=== PATIENT | female | born 1990 | race American Indian/Alaskan Native ===

== ENCOUNTER 2021-04-06 01:25 | Inpatient (IN) | payer BC ==
[2021-04-06] MEDS ORDERED: Butorphanol 1 MG/ML SDV IVPUSH PRN ×2 (02:07→04:09)
[2021-04-06] MEDS ORDERED: hydrOXYzine Pamoate 25 MG Cap PO PRN (02:08)
[2021-04-06] MEDS ORDERED: Lactated Ringers 1,000 ML IV SCH (02:15)
[2021-04-06] MEDS ORDERED: Carboprost Tromethamine 250 MCG/1 ML Amp IM PRN (04:09)
[2021-04-06] MEDS ORDERED: Misoprostol 200 MCG Tab PO PRN (04:09)
[2021-04-06] MEDS ORDERED: Nalbuphine 10 MG/1 ML Vial IVPUSH PRN (04:09)
[2021-04-06] MEDS ORDERED: Ondansetron 4 MG/2 ML SDV IVPUSH PRN (04:09)
[2021-04-06] MEDS ORDERED: Tranexamic Acid 1,000 MG in Sodium Chloride 0.9% 100 ML IV PRN (04:09)
[2021-04-06] MEDS ORDERED: Water For Irrigation,Sterile 1,000 ML Container IRR PRN (04:09)
[2021-04-06] MEDS ORDERED: Lidocaine 1% 50 ML MDV INJECT PRN (04:09)
[2021-04-06] MEDS ORDERED: Methylergonovine 0.2 MG/1 ML Amp IM PRN (04:09)
[2021-04-06] MEDS ORDERED: Oxytocin/0.9 % Sodium Chloride 30 UNIT/500 ML BAG IV SCH (04:15)
[2021-04-06] MEDS: Lactated Ringers 1,000 ML IV SCH ×4 (05:33→16:47)
[2021-04-06] MEDS ORDERED: hydrOXYzine Pamoate 25 MG Cap ONE (06:34)
[2021-04-06] MEDS ORDERED: Ropivacaine HCl/PF 200 ML ONE ×2 (07:36→20:13)
[2021-04-06] MEDS ORDERED: Bupivacaine 0.25% 10 ML SDV ONE (07:36)
--- NOTE | 2021-04-06 08:00 | PCM.PREANE ---
Preanesthetic Assessment - Anesthesia/Transfusion/Family Hx Anesthesia History: Prior Anesthesia Without Reaction Family History of Anesthesia Reaction: No Transfusion History: No Prior Transfusion(s) - Physical Assessment NPO Status Date: 04/06/21 NPO Status Time: 00:00 Height: 5 ft 2 in Weight: 192 lb ASA Class: 2 Airway Class: Mallampati = 3 - Lab Values: Laboratory Last Values WBC 11.51 K/uL (4.0-11.0) H 04/06/21 02:45 RBC 3.81 M/uL (4.30-5.90) L 04/06/21 02:45 Hgb 11.8 g/dL (12.0-16.0) L 04/06/21 02:45 Hct 34.1 % (36.0-46.0) L 04/06/21 02:45 MCV 89.5 fL (80.0-98.0) 04/06/21 02:45 MCH 31.0 pg (27.0-32.0) 04/06/21 02:45 MCHC 34.6 g/dL (31.0-37.0) 04/06/21 02:45 RDW Std Deviation 44.2 fl (28.0-62.0) 04/06/21 02:45 RDW Coeff of Rosalinda 14 % (11.0-15.0) 04/06/21 02:45 Plt Count 244 K/uL (150-400) 04/06/21 02:45 MPV 9.70 fL (7.40-12.00) 04/06/21 02:45 Nucleated RBC % 0.0 /100WBC 04/06/21 02:45 Nucleated RBCs # 0 K/uL 04/06/21 02:45 Blood Type A POSITIVE 04/06/21 02:45 Antibody Screen NEGATIVE 04/06/21 02:45 - Allergies Allergies/Adverse Reactions: Allergies Allergy/AdvReac Type Severity Reaction Status Date / Time No Known Allergies Allergy Verified 04/06/21 02:03 - Blood Blood Available: Yes Product(s) Available: PRBC - Anesthesia Plan Pre-Op Medication Ordered: None - Acknowledgements Anesthesia Type Planned: Epidural Pt an Appropriate Candidate for the Planned Anesthesia: Yes Alternatives and Risks of Anesthesia Discussed w Pt/Guardian: Yes Pt/Guardian Understands and Agrees with Anesthesia Plan: Yes PreAnesthesia Questionnaire - Past Health History Medical/Surgical History: Denies Medical/Surgical History [employer]ER History: Reports: - Infectious Disease History Infectious Disease History: Reports: Chicken Pox, Influenza - SUBSTANCE USE Tobacco Use Status *Q: Never Tobacco User Second Hand Smoke Exposure: No - HOME MEDS Home Medications: Home Meds Cholecalciferol (Vitamin D3) [Vitamin D] 1 tab PO DAILY 04/06/21 [History] Pnv No.95/Ferrous Fum/Folic AC [ Vitamin Tablet] 1 tab PO DAILY 04/06/21 [History] - CURRENT (IN HOUSE) MEDS Current Meds: Current Medications Butorphanol Tartrate (Butorphanol 1 Mg/Ml Sdv) 1 mg IVPUSH Q1H PRN PRN Reason: Pain Last Admin: 04/06/21 02:45 Dose: 1 mg Documented by: Butorphanol Tartrate (Butorphanol 1 Mg/Ml Sdv) 1 mg IVPUSH Q1H PRN PRN Reason: Pain (severe 7-10) Last Admin: 04/06/21 05:17 Dose: 1 mg Documented by: Carboprost Tromethamine (Carboprost Tromethamine 250 Mcg/1 Ml Amp) 250 mcg IM ASDIRECTED PRN PRN Reason: Post Hemorrhage Hydroxyzine Pamoate (Hydroxyzine Pamoate 25 Mg Cap) 50 mg PO ONETIME PRN PRN Reason: Sleep Last Admin: 04/06/21 06:37 Dose: 50 mg Documented by: Lactated Ringer's (Ringers, Lactated) 1,000 mls @ 150 mls/hr IV ASDIRECTED FRED Last Admin: 04/06/21 05:33 Dose: 150 mls/hr Documented by: Oxytocin/Sodium Chloride (Oxytocin 30 Unit/500 Ml-Ns) 30 unit in 500 mls @ 500 mls/hr IV TITRATE [facility]ED Tranexamic Acid 1,000 mg/ (Sodium Chloride) 110 mls @ 660 mls/hr IV ONETIME PRN PRN Reason: Bleeding Lidocaine HCl (Lidocaine 1% 50 Ml Mdv) 50 ml INJECT ONETIME PRN PRN Reason: Laceration repair Methylergonovine Maleate (Methylergonovine 0.2 Mg/1 Ml Amp) 0.2 mg IM ASDIRECTED PRN PRN Reason: Post Hemorrhage Misoprostol (Misoprostol 200 Mcg Tab) 200 mcg PO ONETIME PRN PRN Reason: Post Hemorrhage Nalbuphine HCl (Nalbuphine 10 Mg/1 Ml Vial) 10 mg IVPUSH Q1H PRN PRN Reason: Pain (severe 7-10) Ondansetron HCl (Ondansetron 4 Mg/2 Ml Sdv) 4 mg IVPUSH Q6H PRN PRN Reason: Nausea/Vomiting Sterile Water (Water For Irrigation,Sterile 1,000 Ml Container) 1,000 ml IRR ASDIRECTED PRN PRN Reason: delivery Discontinued Medications Bupivacaine HCl (Bupivacaine 0.25% 10 Ml Sdv) Confirm Administered Dose 10 ml .ROUTE .STK-MED ONE Stop: 04/06/21 07:37 Hydroxyzine Pamoate (Hydroxyzine Pamoate 25 Mg Cap) Confirm Administered Dose 50 mg .ROUTE .STK-MED ONE Stop: 04/06/21 06:35 Lactated Ringer's (Ringers, Lactated) 1,000 mls @ 500 mls/hr IV BOLUS FRED Last Admin: 04/06/21 02:30 Dose: 500 mls/hr Documented by: Ropivacaine (Naropin 0.2%) Confirm Administered Dose 200 mls @ as directed .ROUTE .STK-MED ONE Stop: 04/06/21 07:37
--- NOTE | 2021-04-06 08:02 | PCM.PREANE ---
Preanesthetic Assessment - Anesthesia/Transfusion/Family Hx Anesthesia History: Prior Anesthesia Without Reaction Family History of Anesthesia Reaction: No Transfusion History: No Prior Transfusion(s) - Physical Assessment NPO Status Date: 04/06/21 NPO Status Time: 00:00 Height: 5 ft 2 in Weight: 192 lb - Lab Values: Laboratory Last Values WBC 11.51 K/uL (4.0-11.0) H 04/06/21 02:45 RBC 3.81 M/uL (4.30-5.90) L 04/06/21 02:45 Hgb 11.8 g/dL (12.0-16.0) L 04/06/21 02:45 Hct 34.1 % (36.0-46.0) L 04/06/21 02:45 MCV 89.5 fL (80.0-98.0) 04/06/21 02:45 MCH 31.0 pg (27.0-32.0) 04/06/21 02:45 MCHC 34.6 g/dL (31.0-37.0) 04/06/21 02:45 RDW Std Deviation 44.2 fl (28.0-62.0) 04/06/21 02:45 RDW Coeff of Rosalinda 14 % (11.0-15.0) 04/06/21 02:45 Plt Count 244 K/uL (150-400) 04/06/21 02:45 MPV 9.70 fL (7.40-12.00) 04/06/21 02:45 Nucleated RBC % 0.0 /100WBC 04/06/21 02:45 Nucleated RBCs # 0 K/uL 04/06/21 02:45 Blood Type A POSITIVE 04/06/21 02:45 Antibody Screen NEGATIVE 04/06/21 02:45 - Allergies Allergies/Adverse Reactions: Allergies Allergy/AdvReac Type Severity Reaction Status Date / Time No Known Allergies Allergy Verified 04/06/21 02:03 - Blood Blood Available: Yes Product(s) Available: PRBC PreAnesthesia Questionnaire - Past Health History Medical/Surgical History: Denies 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: - Infectious Disease History Infectious Disease History: Reports: Chicken Pox, Influenza - SUBSTANCE USE Tobacco Use Status *Q: Never Tobacco User Second Hand Smoke Exposure: No - HOME MEDS Home Medications: Home Meds Cholecalciferol (Vitamin D3) [Vitamin D] 1 tab PO DAILY 04/06/21 [History] Pnv No.95/Ferrous Fum/Folic AC [ Vitamin Tablet] 1 tab PO DAILY 04/06/21 [History] - CURRENT (IN HOUSE) MEDS Current Meds: Current Medications Butorphanol Tartrate (Butorphanol 1 Mg/Ml Sdv) 1 mg IVPUSH Q1H PRN PRN Reason: Pain Last Admin: 04/06/21 02:45 Dose: 1 mg Documented by: Butorphanol Tartrate (Butorphanol 1 Mg/Ml Sdv) 1 mg IVPUSH Q1H PRN PRN Reason: Pain (severe 7-10) Last Admin: 04/06/21 05:17 Dose: 1 mg Documented by: Carboprost Tromethamine (Carboprost Tromethamine 250 Mcg/1 Ml Amp) 250 mcg IM ASDIRECTED PRN PRN Reason: Post Hemorrhage Hydroxyzine Pamoate (Hydroxyzine Pamoate 25 Mg Cap) 50 mg PO ONETIME PRN PRN Reason: Sleep Last Admin: 04/06/21 06:37 Dose: 50 mg Documented by: Lactated Ringer's (Ringers, Lactated) 1,000 mls @ 150 mls/hr IV ASDIRECTED FRED Last Admin: 04/06/21 05:33 Dose: 150 mls/hr Documented by: Oxytocin/Sodium Chloride (Oxytocin 30 Unit/500 Ml-Ns) 30 unit in 500 mls @ 500 mls/hr IV TITRATE [facility] Tranexamic Acid 1,000 mg/ (Sodium Chloride) 110 mls @ 660 mls/hr IV ONETIME PRN PRN Reason: Bleeding Lidocaine HCl (Lidocaine 1% 50 Ml Mdv) 50 ml INJECT ONETIME PRN PRN Reason: Laceration repair Methylergonovine Maleate (Methylergonovine 0.2 Mg/1 Ml Amp) 0.2 mg IM ASDIRECTED PRN PRN Reason: Post Hemorrhage Misoprostol (Misoprostol 200 Mcg Tab) 200 mcg PO ONETIME PRN PRN Reason: Post Hemorrhage Nalbuphine HCl (Nalbuphine 10 Mg/1 Ml Vial) 10 mg IVPUSH Q1H PRN PRN Reason: Pain (severe 7-10) Ondansetron HCl (Ondansetron 4 Mg/2 Ml Sdv) 4 mg IVPUSH Q6H PRN PRN Reason: Nausea/Vomiting Sterile Water (Water For Irrigation,Sterile 1,000 Ml Container) 1,000 ml IRR ASDIRECTED PRN PRN Reason: delivery Discontinued Medications Bupivacaine HCl (Bupivacaine 0.25% 10 Ml Sdv) Confirm Administered Dose 10 ml .ROUTE .[employer] ONE Stop: 04/06/21 07:37 Hydroxyzine Pamoate (Hydroxyzine Pamoate 25 Mg Cap) Confirm Administered Dose 50 mg .ROUTE .STnetTALK-MED ONE Stop: 04/06/21 06:35 Lactated Ringer's (Ringers, Lactated) 1,000 mls @ 500 mls/hr IV BOLUS FRED Last Admin: 04/06/21 02:30 Dose: 500 mls/hr Documented by: Ropivacaine (Naropin 0.2%) Confirm Administered Dose 200 mls @ as directed .ROUTE .[facility] ONE Stop: 04/06/21 07:37 - Pre-Procedure Checklist Attending Provider Aware: Yes Chart Reviewed: Yes Consent Signed: Yes Labs Reviewed: Yes VS/FHR Reviewed: Yes Patient Identification Confirmation Method: Reports: Verbal Patient Pt an Appropriate Candidate for the Planned Anesthesia: Yes Alternatives and Risks of Anesthesia Discussed w Pt/Guardian: Yes - Procedure Procedure Start Date: 04/06/21 Procedure Start Time: 07:[address]: Reports: Blood Pressure, Heart Rate, SPO2 Functional IV: Yes Safety Measures: Reports: Patient Identified, Procedure Verified, Site Verified, Procedure Time Out Patient Position: Reports: Sitting Prep: Reports: Betadine x3, Sterile Drape Local Anesthetic: Reports: Intradermal Wheal w Lidocaine 1% Regional Placement Level: Reports: L3-4 Needle: Reports: 17 g Touhy Approach: Reports: Midline Technique: Reports: DELPHINE Plastic Syringe Parasthesia: Reports: None Fluid Obtained: Reports: None Test Dose Time: 07:47 Test Dose Medication: Reports: Lidocaine 1.5% w Epinephrine 1:200,000 Test Dose Response: Reports: Negative Loading Dose Time: 07:46 Loading Dose Medication: bupivicaine 0.25% 10cc Loading Dose Patient Position: sitting Continuous Infusion Start Time: 07:50 Continuous Infusion Medication: ropivicaine 0.2% Continuous Infusion Rate: 16 Continuous Infusion PCS Bolus Option: 4 Continuous Infusion Lockout Dose (cc/hr): 32 Patient Position Post Placement: Reports: Supline/CORNELIUS VS and FHR Monitored in Unit Post Placement: Yes Procedure End Date: 04/06/21 Procedure End Time: 08:40
[2021-04-06] MEDS ORDERED: Acetaminophen 500 MG Tab PO ONE (19:40)
--- NOTE | 2021-04-07 03:22 | PCM.DEL ---
L & D Note - General Info Date of Service: 04/07/21 - Delivery Note Labor: Spontaneous Delivery Outcome: Livebirth Delivery Method: Spontaneous Vaginal Delivery-Single Delivery Mode: Vacuum Extraction Presentation: Left Occiput Anterior (DELORIS) Nuchal Cord: None Anesthesia Type: Epidural Episiotomy Type: None Laceration: Labial Suture type: Vicryl Suture size: 2-0 Placenta: Intact Cord: 3 Vessels Estimated Blood Loss: 300 Resuscitation Needed: No Score 1 min: 7 Score 5 min: 7 Second Stage Interventions: Reports: Pushing Effectively Delivery Comments (Free Text/Narrative):: Patient consent for vacuum assisted vaginal delivery She pushed for 2hrs with head at +2 station. Patient informed of the risk of vacuum cephalhematoma , maternal injury , subgleal hematoma. if failed vacuum , she will need a Kiwi vacuum applied at flexion point , 1 pop off noted , after which head was successfully delivered Live female delivered at 213am , 7/7 weight 3890g Vacuum Extractor Progress Note - Alternative Labor Strategies Considered Strategies Considered:: Reports: Position Changes Used to Facilitate Rotation & Descent, Empty Bladder Indications Considered:: Reports: Yes Indications:: Reports: Prolonged 2nd Stage Time Out:: Reports: Yes - Patient Prepared Patient Prepared:: Reports: Yes Informed Consent:: Reports: Verbal Risks: Reports: Yes Risks Include:: Reports: Laceration, Shoulder Dystocia, Maternal Injury, Other Anesthesia/Analgesia Adequate:: Reports: Yes - Probability of Success High Probability of Success:: Reports: Yes Weight Estimated:: Reports: LGA Patient Diabetic:: Reports: No Pelvis Adequate:: Reports: Yes Asynclitic:: Reports: No Station:: +2 - Application Time Maximum Application Time & Number of Pop-Offs Predetermined:: Reports: No Total Application Time (min): *max=20min: 5 Number of Times Cup Disengaged:: 1 Type of Vacuum Used:: Reports: Cup: Soft Vacuum Extraction: Successful - Exit Strategy Exit strategy available:: Reports: Yes and resuscitation teams readily available:: Reports: Yes - General Info Date of Service: 04/07/21 - Patient Data Vitals - Most Recent: Last Vital Signs Temp 37.2 C 04/06/21 19:58 Pulse Resp BP Pulse Ox Weight - Most Recent: 87.09 kg I&O - Last 24 Hours: Intake & Output 04/06/21 04/06/21 04/07/21 14:59 22:59 06:59 Intake Total 1000 Balance 1000 Lab Results Last 24 Hours: Laboratory Results - last 24 hr 04/06/21 Range/Units 02:45 Blood Type A POSITIVE Antibody Screen NEGATIVE Med Orders - Current: Current Medications Butorphanol Tartrate (Butorphanol 1 Mg/Ml Sdv) 1 mg IVPUSH Q1H PRN PRN Reason: Pain Last Admin: 04/06/21 02:45 Dose: 1 mg Documented by: Butorphanol Tartrate (Butorphanol 1 Mg/Ml Sdv) 1 mg IVPUSH Q1H PRN PRN Reason: Pain (severe 7-10) Last Admin: 04/06/21 05:17 Dose: 1 mg Documented by: Carboprost Tromethamine (Carboprost Tromethamine 250 Mcg/1 Ml Amp) 250 mcg IM ASDIRECTED PRN PRN Reason: Post Hemorrhage Hydroxyzine Pamoate (Hydroxyzine Pamoate 25 Mg Cap) 50 mg PO ONETIME PRN PRN Reason: Sleep Last Admin: 04/06/21 06:37 Dose: 50 mg Documented by: Lactated Ringer's (Ringers, Lactated) 1,000 mls @ 150 mls/hr IV ASDIRECTED [facility] Last Admin: 04/06/21 16:47 Dose: 150 mls/hr Documented by: Oxytocin/Sodium Chloride (Oxytocin 30 Unit/500 Ml-Ns) 30 unit in 500 mls @ 500 mls/hr IV TITRATE [facility] Last Admin: 04/07/21 02:14 Dose: 999 mls/hr Documented by: Tranexamic Acid 1,000 mg/ (Sodium Chloride) 110 mls @ 660 mls/hr IV ONETIME PRN PRN Reason: Bleeding Lidocaine HCl (Lidocaine 1% 50 Ml Mdv) 50 ml INJECT ONETIME PRN PRN Reason: Laceration repair Methylergonovine Maleate (Methylergonovine 0.2 Mg/1 Ml Amp) 0.2 mg IM ASDIRECTED PRN PRN Reason: Post Hemorrhage Last Admin: 04/07/21 03:13 Dose: 0.2 mg Documented by: Misoprostol (Misoprostol 200 Mcg Tab) 200 mcg PO ONETIME PRN PRN Reason: Post Hemorrhage Ondansetron HCl (Ondansetron 4 Mg/2 Ml Sdv) 4 mg IVPUSH Q6H PRN PRN Reason: Nausea/Vomiting Sterile Water (Water For Irrigation,Sterile 1,000 Ml Container) 1,000 ml IRR ASDIRECTED PRN PRN Reason: delivery Discontinued Medications Acetaminophen (Acetaminophen 500 Mg Tab) 1,000 mg PO NOW ONE Stop: 04/06/21 19:41 Last Admin: 04/06/21 19:58 Dose: 1,000 mg Documented by: Bupivacaine HCl (Bupivacaine 0.25% 10 Ml Sdv) Confirm Administered Dose 10 ml .ROUTE .STK-MED ONE Stop: 04/06/21 07:37 Hydroxyzine Pamoate (Hydroxyzine Pamoate 25 Mg Cap) Confirm Administered Dose 50 mg .ROUTE .STK-MED ONE Stop: 04/06/21 06:35 Lactated Ringer's (Ringers, Lactated) 1,000 mls @ 500 mls/hr IV BOLUS FRED Last Admin: 04/06/21 02:30 Dose: 500 mls/hr Documented by: Ropivacaine (Naropin 0.2%) Confirm Administered Dose 200 mls @ as directed .ROUTE .STK-MED ONE Stop: 04/06/21 07:37 Ropivacaine (Naropin 0.2%) Confirm Administered Dose 200 mls @ as directed .ROUTE .STK-MED ONE Stop: 04/06/21 20:14 Last Admin: 04/06/21 20:16 Dose: 16 mls/hr Documented by: Nalbuphine HCl (Nalbuphine 10 Mg/1 Ml Vial) 10 mg IVPUSH Q1H PRN PRN Reason: Pain (severe 7-10) - Problem List & Annotations (1) Vacuum extractor delivery, delivered SNOMED Code(s): 084579567 Code(s): O75.9 - COMPLICATION OF LABOR AND DELIVERY, UNSPECIFIED Status: Acute Current Visit: Yes - Problem List Review Problem List Initiated/Reviewed/Updated: Yes - My Orders Last 24 Hours: My Active Orders 04/06/21 02:45 RPR (SYPHILIS SERO) W/ RFLX [REF] Routine 04/06/21 04:09 Patient Status [ADT] Routine May Shower [RC] ASDIRECTED Notify Provider [RC] PRN Butorphanol [Stadol] 1 mg IVPUSH Q1H PRN Carboprost Tromethamine [Hemabate DS] 250 mcg IM ASDIRECTED PRN Lidocaine 1% [Xylocaine 1%] 50 ml INJECT ONETIME PRN Methylergonovine [Methergine] 0.2 mg IM ASDIRECTED PRN Ondansetron [Zofran] 4 mg IVPUSH Q6H PRN Tranexamic Acid [Cyklokapron] 1,000 mg Sodium Chloride 0.9% [Normal Saline] 10 0 ml IV ONETIME Water For Irrigation,Sterile [Sterile Water for Irrigation] 1,000 ml IRR ASDIRECTED PRN miSOPROStoL [Cytotec] 200 mcg PO ONETIME PRN 04/06/21 04:15 Lactated Ringers [Ringers, Lactated] 1,000 ml IV ASDIRECTED Oxytocin/0.9 % Sodium Chloride [Oxytocin 30 Unit/500 ML-NS] 30 unit in 500 ml IV TITRATE - Assessment Assessment:: 30yo P1 s/p VAVD, PPD0 Thick meconium - Plan Plan:: Routine care
[2021-04-07] MEDS ORDERED: Lanolin 100% Cream 7 GM Tube TOP PRN (03:30)
[2021-04-07] MEDS ORDERED: Acetaminophen 500 MG Tab PO PRN (03:30)
[2021-04-07] MEDS ORDERED: Witch Hazel Medicated Pads 40/Jar TOP PRN (03:30)
[2021-04-07] MEDS ORDERED: Bisacodyl 10 MG Supp RECTAL PRN (03:30)
[2021-04-07] MEDS ORDERED: Benzocaine/Menthol 20%-0.5% Spray 78 GM Cannister TOP PRN (03:30)
[2021-04-07] MEDS ORDERED: Ibuprofen 400 MG Tab PO PRN (03:30)
[2021-04-07] MEDS: Ibuprofen 800 MG Tab PO PRN ×3 (03:45→21:12)
[2021-04-07] MEDS: Acetaminophen 500 MG Tab PO PRN ×3 (03:46→20:29)
[2021-04-07] MEDS: oxyCODONE 5 MG Tab PO PRN ×4 (04:33→22:36)
--- NOTE | 2021-04-07 12:43 | OR ---
SURGEON: KELSEY ANGULO DATE OF PROCEDURE: 04/07/2021 PREOPERATIVE DIAGNOSES: 1. A 30-year-old G2, P1-0-0-1 at 39 weeks and 4 days admitted for trial of labor after section. 2. Group B Streptococcus negative. POSTOPERATIVE DIAGNOSES: 1. A 30-year-old G2, P1-0-0-1 at 39 weeks and 4 days admitted for trial of labor after section. 2. Group B Streptococcus negative. PROCEDURES: Vacuum-assisted vaginal delivery and repair of bilateral labial laceration. ANAESTHESIA Epidural ESTIMATED BLOOD LOSS: 300. INTRAVENOUS FLUIDS: Pitocin running. NOTES AND FINDINGS: Normal live female delivered at 12:13 a.m. scores of 7 and 7. Weight is 3890. Thick meconium noted. BRIEF HISTORY ABOUT THE PATIENT: She is a 30-year-old G2, P1-0-0-1 at 39 weeks 5 days who was seen for care. She desired to have a trial of labor after delivery. She had suspected macrosomia. The patient was counseled for repeat . She declined. She wanted trial of labor, which she signed a consent. She understood the risks, benefits, and alternatives and she decided to proceed. When she came in, she came in in labor. She was about 3 cm to 4 cm dilated. She then made change. She became 5 cm. She had a slow labor curve. She was 5 for a while. She became 6 cm. Then, she progressed to being fully dilated. When patient was being fully dilated, she pushed for about 2 hours and 30 minutes. The head was now at +2 station. Due to maternal exhaustion, she was counseled for a vacuum-assisted vaginal delivery, which she accepted. The bladder was emptied. The team was called, the respiratory therapy director of financial reporting. Anesthesia was informed, and so after verbal consent was obtained, the Kiwi was placed at the flexion point. The vacuum was applied on the flexion point and had 1 pop- off. On second attempt, there was successful delivery of the head after which the shoulders were delivered, anterior and posterior shoulder. The had thick meconium, so immediate clamping of the cord was done, and was handed over to the pediatric team to begin resuscitation. Then, the cord blood was obtained. Placenta was delivered via controlled cord traction. Perineum was inspected. Bilateral labial laceration was noted, which was repaired with 2- 0 Vicryl interrupted stitches. The uterus was noted to be firm with some bleeding. However, Methergine 0.2 was given. After this, perineum was inspected. Uterus was firm. All instrument and pad counts were correct x2. The patient was left in labor room in stable condition. NICOLE LITTLEJOHN /[id number] MTDD
[2021-04-07] MEDS: Docusate Sodium 100 MG Cap PO PRN (20:29)
[2021-04-08] MEDS: Acetaminophen 500 MG Tab PO PRN ×3 (02:02→19:00)
[2021-04-08] MEDS: Ibuprofen 800 MG Tab PO PRN ×2 (08:15→20:57)
[2021-04-08] MEDS: Docusate Sodium 100 MG Cap PO PRN ×2 (08:16→20:57)
--- NOTE | 2021-04-08 12:00 | PCM.PNPP ---
- General Info Date of Service: 04/08/21 Functional Status: Reports: Pain Controlled, Tolerating Diet, Ambulating, Urinating - Review of Systems General: Reports: No Symptoms HEENT: Reports: No Symptoms Pulmonary: Reports: No Symptoms Cardiovascular: Reports: No Symptoms Gastrointestinal: Reports: No Symptoms Genitourinary: Reports: No Symptoms Musculoskeletal: Reports: No Symptoms Skin: Reports: No Symptoms Neurological: Reports: No Symptoms Psychiatric: Reports: No Symptoms - Patient Data Vital Signs - Most Recent: Last Vital Signs Temp 35.9 C L 04/08/21 08:00 Pulse 75 04/08/21 08:00 Resp 18 04/08/21 08:00 BP 112/66 04/08/21 08:00 Pulse Ox 95 04/08/21 08:00 Weight - Most Recent: 192 lb Lab Results - Last 24 Hours: Laboratory Results - last 24 hr 04/08/21 Range/Units 05:10 WBC 18.93 H (4.0-11.0) K/uL RBC 3.44 L (4.30-5.90) M/uL Hgb 10.7 L (12.0-16.0) g/dL Hct 31.0 L (36.0-46.0) % MCV 90.1 (80.0-98.0) fL MCH 31.1 (27.0-32.0) pg MCHC 34.5 (31.0-37.0) g/dL RDW Std Deviation 45.8 (28.0-62.0) fl RDW Coeff of Rosalinda 14 (11.0-15.0) % Plt Count 217 (150-400) K/uL MPV 10.00 (7.40-12.00) fL Neutrophils % (Manual) 75 (48.0-80.0) % Band Neutrophils % 8 % Lymphocytes % (Manual) 13 L (16.0-40.0) % Monocytes % (Manual) 4 (0.0-15.0) % Nucleated RBC % 0.0 /100WBC Absolute Seg Neuts 14.2 H (1.4-5.7) Band Neutrophils # 1.5 Lymphocytes # (Manual) 2.5 H (0.6-2.4) Monocytes # (Manual) 0.8 (0.0-0.8) Med Orders - Current: Current Medications Acetaminophen (Acetaminophen 500 Mg Tab) 500 mg PO Q4H PRN PRN Reason: Pain (mild 1-3) Last Admin: 04/07/21 16:25 Dose: 500 mg Documented by: Acetaminophen (Acetaminophen 500 Mg Tab) 1,000 mg PO Q4H PRN PRN Reason: Pain (mild 1-3) Last Admin: 04/08/21 09:25 Dose: 1,000 mg Documented by: Benzocaine/Menthol (Benzocaine/Menthol 20%-0.5% Anna 78 Gm Cannister) 78 gm TOP ASDIRECTED PRN PRN Reason: Perineal Comfort Measure Last Admin: 04/07/21 03:48 Dose: 1 can Documented by: Bisacodyl (Bisacodyl 10 Mg Supp) 10 mg RECTAL ONETIME PRN PRN Reason: Constipation Butorphanol Tartrate (Butorphanol 1 Mg/Ml Sdv) 1 mg IVPUSH Q1H PRN PRN Reason: Pain Last Admin: 04/06/21 02:45 Dose: 1 mg Documented by: Butorphanol Tartrate (Butorphanol 1 Mg/Ml Sdv) 1 mg IVPUSH Q1H PRN PRN Reason: Pain (severe 7-10) Last Admin: 04/06/21 05:17 Dose: 1 mg Documented by: Carboprost Tromethamine (Carboprost Tromethamine 250 Mcg/1 Ml Amp) 250 mcg IM ASDIRECTED PRN PRN Reason: Post Hemorrhage Docusate Sodium (Docusate Sodium 100 Mg Cap) 100 mg PO Q12H PRN PRN Reason: Constipation Last Admin: 04/08/21 08:16 Dose: 100 mg Documented by: Emollient Ointment (Lanolin 100% Cream 7 Gm Tube) 0 gm TOP ASDIRECTED PRN PRN Reason: Sore Nipples Hydroxyzine Pamoate (Hydroxyzine Pamoate 25 Mg Cap) 50 mg PO ONETIME PRN PRN Reason: Sleep Last Admin: 04/06/21 06:37 Dose: 50 mg Documented by: Lactated Ringer's (Ringers, Lactated) 1,000 mls @ 150 mls/hr IV ASDIRECTED FRED Last Infusion: 04/06/21 23:28 Dose: Infused Documented by: Oxytocin/Sodium Chloride (Oxytocin 30 Unit/500 Ml-Ns) 30 unit in 500 mls @ 500 mls/hr IV TITRATE FRED Last Infusion: 04/07/21 02:44 Dose: Infused Documented by: Tranexamic Acid 1,000 mg/ (Sodium Chloride) 110 mls @ 660 mls/hr IV ONETIME PRN PRN Reason: Bleeding Ibuprofen (Ibuprofen 400 Mg Tab) 400 mg PO Q4H PRN PRN Reason: Pain (mild 1-3) Ibuprofen (Ibuprofen 800 Mg Tab) 800 mg PO Q6H PRN PRN Reason: Pain (mild 1-3) Last Admin: 04/08/21 08:15 Dose: 800 mg Documented by: Lidocaine HCl (Lidocaine 1% 50 Ml Mdv) 50 ml INJECT ONETIME PRN PRN Reason: Laceration repair Methylergonovine Maleate (Methylergonovine 0.2 Mg/1 Ml Amp) 0.2 mg IM ASDIRECTED PRN PRN Reason: Post Hemorrhage Last Admin: 04/07/21 03:13 Dose: 0.2 mg Documented by: Misoprostol (Misoprostol 200 Mcg Tab) 200 mcg PO ONETIME PRN PRN Reason: Post Hemorrhage Ondansetron HCl (Ondansetron 4 Mg/2 Ml Sdv) 4 mg IVPUSH Q6H PRN PRN Reason: Nausea/Vomiting Oxycodone HCl (Oxycodone 5 Mg Tab) 5 mg PO Q2H PRN PRN Reason: Pain (severe 7-10) Last Admin: 04/07/21 22:36 Dose: 5 mg Documented by: Sterile Water (Water For Irrigation,Sterile 1,000 Ml Container) 1,000 ml IRR ASDIRECTED PRN PRN Reason: delivery Witch Lavinia (Witch Lavinia Medicated Pads 40/Jar) 1 pad TOP ASDIRECTED PRN PRN Reason: comfort care Discontinued Medications Acetaminophen (Acetaminophen 500 Mg Tab) 1,000 mg PO NOW ONE Stop: 04/06/21 19:41 Last Admin: 04/06/21 19:58 Dose: 1,000 mg Documented by: Bupivacaine HCl (Bupivacaine 0.25% 10 Ml Sdv) Confirm Administered Dose 10 ml .ROUTE .STK-MED ONE Stop: 04/06/21 07:37 Hydroxyzine Pamoate (Hydroxyzine Pamoate 25 Mg Cap) Confirm Administered Dose 50 mg .ROUTE .STK-MED ONE Stop: 04/06/21 06:35 Lactated Ringer's (Ringers, Lactated) 1,000 mls @ 500 mls/hr IV BOLUS FRED Last Admin: 04/06/21 02:30 Dose: 500 mls/hr Documented by: Ropivacaine (Naropin 0.2%) Confirm Administered Dose 200 mls @ as directed .ROUTE .STK-MED ONE Stop: 04/06/21 07:37 Ropivacaine (Naropin 0.2%) Confirm Administered Dose 200 mls @ as directed .ROUTE .STK-MED ONE Stop: 04/06/21 20:14 Last Admin: 04/06/21 20:16 Dose: 16 mls/hr Documented by: Nalbuphine HCl (Nalbuphine 10 Mg/1 Ml Vial) 10 mg IVPUSH Q1H PRN PRN Reason: Pain (severe 7-10) - Infant Interaction Infant Disposition, : [employer] at Bedside Interaction: Holding Infant Feeding: Breastfed Infant; Nursed Well Support Person: - Recovery Exam Fundal Tone: Firm Fundal Level: 1 Fingerbreadths Above Umbilicus Fundal Placement: Midline Lochia Amount: Scant Lochia Color: Rubra/Red Perineum Description: Intact, Minimal Bruising/Swelling Other Perinuem Description: skid carlton Episiotomy/Laceration: None Bladder Status: Voiding Urinary Elimination: Voided - Exam General: Alert, Oriented, Cooperative, No Acute Distress HEENT: Pupils Equal, Pupils Reactive, EOMI Neck: Supple, Trachea Midline, No JVD Lungs: Normal Respiratory Effort GI/Abdominal Exam: Soft, Non-Tender, No Distention Extremities: Normal Inspection, Normal Range of Motion, Non-Tender, No Pedal Edema Skin: Warm, Dry, Intact Neurological: No New Focal Deficit Psy/Mental Status: Alert, Normal Affect, Normal Mood - Problem List Review Problem List Initiated/Reviewed/Updated: Yes - Assessment Assessment:: 30yo PPD1 s/p VAVD and , stable and recovering well. - Plan Plan:: - vital stable - bleeding light, Hgb 10.7, denies s/s of anemia - well - baby receiving antibiotics Routine care, plan for discharge home tomorrow
[2021-04-09] MEDS: oxyCODONE 5 MG Tab PO PRN ×2 (00:34→07:43)
--- NOTE | 2021-04-09 05:48 | PCM.PNPP ---
- General Info Date of Service: 04/09/21 Functional Status: Reports: Pain Controlled, Tolerating Diet, Ambulating, Urinating - Review of Systems General: Reports: No Symptoms HEENT: Reports: No Symptoms Pulmonary: Reports: No Symptoms Cardiovascular: Reports: No Symptoms Gastrointestinal: Reports: No Symptoms Genitourinary: Reports: No Symptoms Musculoskeletal: Reports: No Symptoms Skin: Reports: No Symptoms Neurological: Reports: No Symptoms Psychiatric: Reports: No Symptoms - Patient Data Vital Signs - Most Recent: Last Vital Signs Temp 36.8 C 04/08/21 20:40 Pulse 80 04/08/21 20:40 Resp 18 04/08/21 20:40 BP 118/66 04/08/21 20:40 Pulse Ox 97 04/08/21 20:40 Weight - Most Recent: 192 lb Lab Results - Last 24 Hours: Laboratory Results - last 24 hr 04/06/21 04/08/21 Range/Units 02:45 05:10 WBC 18.93 H (4.0-11.0) K/uL RBC 3.44 L (4.30-5.90) M/uL Hgb 10.7 L (12.0-16.0) g/dL Hct 31.0 L (36.0-46.0) % MCV 90.1 (80.0-98.0) fL MCH 31.1 (27.0-32.0) pg MCHC 34.5 (31.0-37.0) g/dL RDW Std Deviation 45.8 (28.0-62.0) fl RDW Coeff of Rosalinda 14 (11.0-15.0) % Plt Count 217 (150-400) K/uL MPV 10.00 (7.40-12.00) fL Neutrophils % (Manual) 75 (48.0-80.0) % Band Neutrophils % 8 % Lymphocytes % (Manual) 13 L (16.0-40.0) % Monocytes % (Manual) 4 (0.0-15.0) % Nucleated RBC % 0.0 /100WBC Absolute Seg Neuts 14.2 H (1.4-5.7) Band Neutrophils # 1.5 Lymphocytes # (Manual) 2.5 H (0.6-2.4) Monocytes # (Manual) 0.8 (0.0-0.8) RPR Non-Reac (Non-Reac) Med Orders - Current: Current Medications Acetaminophen (Acetaminophen 500 Mg Tab) 500 mg PO Q4H PRN PRN Reason: Pain (mild 1-3) Last Admin: 04/07/21 16:25 Dose: 500 mg Documented by: Acetaminophen (Acetaminophen 500 Mg Tab) 1,000 mg PO Q4H PRN PRN Reason: Pain (mild 1-3) Last Admin: 04/08/21 19:00 Dose: 1,000 mg Documented by: Benzocaine/Menthol (Benzocaine/Menthol 20%-0.5% Lorane 78 Gm Cannister) 78 gm TOP ASDIRECTED PRN PRN Reason: Perineal Comfort Measure Last Admin: 04/07/21 03:48 Dose: 1 can Documented by: Bisacodyl (Bisacodyl 10 Mg Supp) 10 mg RECTAL ONETIME PRN PRN Reason: Constipation Butorphanol Tartrate (Butorphanol 1 Mg/Ml Sdv) 1 mg IVPUSH Q1H PRN PRN Reason: Pain Last Admin: 04/06/21 02:45 Dose: 1 mg Documented by: Butorphanol Tartrate (Butorphanol 1 Mg/Ml Sdv) 1 mg IVPUSH Q1H PRN PRN Reason: Pain (severe 7-10) Last Admin: 04/06/21 05:17 Dose: 1 mg Documented by: Carboprost Tromethamine (Carboprost Tromethamine 250 Mcg/1 Ml Amp) 250 mcg IM ASDIRECTED PRN PRN Reason: Post Hemorrhage Docusate Sodium (Docusate Sodium 100 Mg Cap) 100 mg PO Q12H PRN PRN Reason: Constipation Last Admin: 04/08/21 20:57 Dose: 100 mg Documented by: Emollient Ointment (Lanolin 100% Cream 7 Gm Tube) 0 gm TOP ASDIRECTED PRN PRN Reason: Sore Nipples Hydroxyzine Pamoate (Hydroxyzine Pamoate 25 Mg Cap) 50 mg PO ONETIME PRN PRN Reason: Sleep Last Admin: 04/06/21 06:37 Dose: 50 mg Documented by: Lactated Ringer's (Ringers, Lactated) 1,000 mls @ 150 mls/hr IV ASDIRECTED FRED Last Infusion: 04/06/21 23:28 Dose: Infused Documented by: Oxytocin/Sodium Chloride (Oxytocin 30 Unit/500 Ml-Ns) 30 unit in 500 mls @ 500 mls/hr IV TITRATE FRED Last Infusion: 04/07/21 02:44 Dose: Infused Documented by: Tranexamic Acid 1,000 mg/ (Sodium Chloride) 110 mls @ 660 mls/hr IV ONETIME PRN PRN Reason: Bleeding Ibuprofen (Ibuprofen 400 Mg Tab) 400 mg PO Q4H PRN PRN Reason: Pain (mild 1-3) Ibuprofen (Ibuprofen 800 Mg Tab) 800 mg PO Q6H PRN PRN Reason: Pain (mild 1-3) Last Admin: 04/08/21 20:57 Dose: 800 mg Documented by: Lidocaine HCl (Lidocaine 1% 50 Ml Mdv) 50 ml INJECT ONETIME PRN PRN Reason: Laceration repair Methylergonovine Maleate (Methylergonovine 0.2 Mg/1 Ml Amp) 0.2 mg IM ASDIRECTED PRN PRN Reason: Post Hemorrhage Last Admin: 04/07/21 03:13 Dose: 0.2 mg Documented by: Misoprostol (Misoprostol 200 Mcg Tab) 200 mcg PO ONETIME PRN PRN Reason: Post Hemorrhage Ondansetron HCl (Ondansetron 4 Mg/2 Ml Sdv) 4 mg IVPUSH Q6H PRN PRN Reason: Nausea/Vomiting Oxycodone HCl (Oxycodone 5 Mg Tab) 5 mg PO Q2H PRN PRN Reason: Pain (severe 7-10) Last Admin: 04/09/21 00:34 Dose: 5 mg Documented by: Sterile Water (Water For Irrigation,Sterile 1,000 Ml Container) 1,000 ml IRR ASDIRECTED PRN PRN Reason: delivery Witch Lavinia (Witch Lavinia Medicated Pads 40/Jar) 1 pad TOP ASDIRECTED PRN PRN Reason: comfort care Discontinued Medications Acetaminophen (Acetaminophen 500 Mg Tab) 1,000 mg PO NOW ONE Stop: 04/06/21 19:41 Last Admin: 04/06/21 19:58 Dose: 1,000 mg Documented by: Bupivacaine HCl (Bupivacaine 0.25% 10 Ml Sdv) Confirm Administered Dose 10 ml .ROUTE .STK-MED ONE Stop: 04/06/21 07:37 Hydroxyzine Pamoate (Hydroxyzine Pamoate 25 Mg Cap) Confirm Administered Dose 50 mg .ROUTE .STK-MED ONE Stop: 04/06/21 06:35 Lactated Ringer's (Ringers, Lactated) 1,000 mls @ 500 mls/hr IV BOLUS FRED Last Admin: 04/06/21 02:30 Dose: 500 mls/hr Documented by: Ropivacaine (Naropin 0.2%) Confirm Administered Dose 200 mls @ as directed .ROUTE .STK-MED ONE Stop: 04/06/21 07:37 Ropivacaine (Naropin 0.2%) Confirm Administered Dose 200 mls @ as directed .ROUTE .STK-MED ONE Stop: 04/06/21 20:14 Last Admin: 04/06/21 20:16 Dose: 16 mls/hr Documented by: Nalbuphine HCl (Nalbuphine 10 Mg/1 Ml Vial) 10 mg IVPUSH Q1H PRN PRN Reason: Pain (severe 7-10) - Infant Interaction Disposition, : at Bedside Infant Interaction: Holding Infant Feeding: Breastfed ; Nursed Well Support Person: - Recovery Exam Fundal Tone: Firm Fundal Level: 1 Fingerbreadths Above Umbilicus Fundal Placement: Midline Lochia Amount: Scant Lochia Color: Rubra/Red Perineum Description: Intact, Minimal Bruising/Swelling Other Perinuem Description: skid carlton Episiotomy/Laceration: None Bladder Status: Voiding Urinary Elimination: Voided - Exam General: Alert, Oriented, Cooperative, No Acute Distress HEENT: Pupils Equal, Pupils Reactive Neck: Supple, Trachea Midline, No JVD Lungs: Normal Respiratory Effort GI/Abdominal Exam: Soft, Non-Tender, No Distention Extremities: Normal Inspection, Normal Range of Motion, Non-Tender, No Pedal Edema Skin: Warm, Dry, Intact Wound/Incisions: Healing Well Neurological: No New Focal Deficit Psy/Mental Status: Alert, Normal Affect, Normal Mood - Problem List Review Problem List Initiated/Reviewed/Updated: Yes - My Orders Last 24 Hours: My Active Orders 04/09/21 05:45 Ready for Discharge [RC] PER UNIT ROUTINE - Assessment Assessment:: 30yo PPD2 s/p VAVD and , stable and recovering well. - Plan Plan:: - vital stable - bleeding light, Hgb 10.7, denies s/s of anemia - well - baby is doing well s/p antibiotics Pa for discharge home today, reviewed care instructions.
[2021-04-09] MEDS: Docusate Sodium 100 MG Cap PO PRN (07:44)
== END 2021-04-09 11:20 | disposition home or self-care (01) | DRG 560 ==
LOC: MW.OBCHECK 01:25 → MW.OB 01:26 → MW.OBCHECK 02:05 → MW.OB 02:05 → OBSVTOIN 04-07 02:13 → MW.OB 04-07 05:57
PROVIDERS: ADMIT Obstetrics & Gynecology; ATTEND Obstetrics & Gynecology
PROC: 10D07Z6 Extraction of Products of Conception, Vacuum, Via Natural or Artificial Opening (ICD-10-PCS; principal; 2021-04-07)
PROC: 0HQ9XZZ Repair Perineum Skin, External Approach (ICD-10-PCS; 2021-04-07)
PROC: 3E0R3BZ Introduction of Anesthetic Agent into Spinal Canal, Percutaneous Approach (ICD-10-PCS; 2021-04-07)
PROC: 00HU33Z Insertion of Infusion Device into Spinal Canal, Percutaneous Approach (ICD-10-PCS; 2021-04-07)
DX: O34.211 Maternal care for low transverse scar from previous cesarean delivery (principal); Z3A.39 39 weeks gestation of pregnancy; Z37.0 Single live birth; O77.0 Labor and delivery complicated by meconium in amniotic fluid; O70.0 First degree perineal laceration during delivery
CPT/HCPCS: 01967; 36415; 51702; 59025; 59409; 82803; 85007; 85027; 86592; 86850; 86900; 86901; A9270-GY; J0595; J2210; J2590; J2795; J3490; J7120